=== PATIENT | female | born 1985 | race Caucasian/White ===

== ENCOUNTER → 2017-02-12 | Outpatient (CLI) | payer BC ==
[~2017-02-12] MED LIST: CITA10TA8 PO; PRENTAB26 PO
== END | disposition home or self-care (01) ==
LOC: C.PAPS 14:17
PROVIDERS: ATTEND Physician Assistant
DX: Z01.419 Encounter for gynecological examination (general) (routine) without abnormal findings (principal)

== ENCOUNTER → 2017-04-30 | Outpatient (CLI) | payer BC | END | disposition home or self-care (01) | LOC: C.LABSPEC 10:57 | PROVIDERS: ATTEND Obstetrics & Gynecology | DX: Z34.91 Encounter for supervision of normal pregnancy, unspecified, first trimester (principal) ==

== ENCOUNTER → 2017-05-07 | Outpatient (CLI) | payer BC ==
[2017-05-07 15:36] LABS: BASO % 0.2 %; BASO ABS # 0.02 K/uL (0-0.2); EOS % 0.3 %; EOS ABS # 0.04 K/uL (0-0.5); HEMATOCRIT 37.7 % (37-47); HEMOGLOBIN 13.4 g/dL (12.0-16.0); IG# 0.02 K/uL (0.00-0.02); LYMPH % 24.7 %; LYMPH ABS # 3.07 K/uL (1.2-3.4); MEAN CELL VOLUME 85.3 fL (80-100); MEAN CORPUSCULAR HEMOGLOBIN 30.3 pg (25-34); MEAN CORPUSCULAR HGB CONC 35.5 g/dl (32-36); MEAN PLATELET VOLUME 9.5 fL (7.4-10.4); MONO ABS # 0.87 K/uL (0.11-0.59); NEUT % 67.6 %; NEUT ABS # 8.43 K/uL (1.4-6.5); PLATELET COUNT 279 K/uL (130-400); RED CELL DISTRIBUTION WIDTH CV 13.1 % (11.5-14.5); RED CELL DISTRIBUTION WIDTH SD 40.3 fL (36.4-46.3); WHITE BLOOD COUNT 12.45 K/uL (4.8-10.8)
== END | disposition home or self-care (01) ==
LOC: C.LAB1850 14:24
PROVIDERS: ATTEND Obstetrics & Gynecology
DX: Z34.91 Encounter for supervision of normal pregnancy, unspecified, first trimester (principal)

== ENCOUNTER → 2017-07-02 | Outpatient (CLI) | payer BC | END | disposition home or self-care (01) | LOC: C.LAB1850 08:33 | PROVIDERS: ATTEND Obstetrics & Gynecology | DX: Z34.82 Encounter for supervision of other normal pregnancy, second trimester (principal) ==